=== PATIENT | female | born 1980 | race Caucasian/White ===

== ENCOUNTER 2018-10-31 20:17 | Emergency (ER) | payer OTHER ==
[~2018-10-31] VITALS: Ht 160 cm; Wt 43.1 kg
[2018-10-31] MEDS ORDERED: ACETAMINOPHEN-1 EAC1 PO (21:41)
[2018-10-31 21:55] VITALS: BP 109/68
== END 2018-10-31 21:56 | disposition home or self-care (01) ==
LOC: M.ERS 20:17
DX: L53.9 Erythematous condition, unspecified (principal); R51 Headache; F17.200 Nicotine dependence, unspecified, uncomplicated; Z90.721 Acquired absence of ovaries, unilateral; Y04.2XXA Assault by strike against or bumped into by another person, initial encounter; Y92.89 Other specified places as the place of occurrence of the external cause; Y93.89 Activity, other specified; Y99.8 Other external cause status